=== PATIENT | male | born 1960 | race Caucasian/White ===

== ENCOUNTER 2016-07-11 16:14 | Observation (INO) | payer MEDICARE, MEDICAID, OTHER ==
--- NOTE | 2016-07-11 16:28 | EDM.PDOC ---
ED HPI GENERAL MEDICAL PROBLEM - General Stated Complaint: SEIZURE Time Seen by Provider: 07/11/16 16:14 Source of Information: Reports: Patient, EMS, EMS Notes Reviewed History Limitations: Reports: Intoxication - History of Present Illness INITIAL COMMENTS - FREE TEXT/NARRATIVE: 55 years old w m with chronic ETOH abuse, ETOH related seizure, was brought to the ed by EMS after he was found in his apartment, intoxicated, "not talking" On arrival, his BS was 86, 156/96 pulse 97. pt was following commands, was cooperative, but did not talk. strong ETOH odor. No family was present when the patient arrived here in the ed by EMS. GCS was 14 Onset: Gradual Onset Date: 07/11/16 Onset Time: 14:00 Duration: Hour(s): Location: Reports: Generalized - Related Data Allergies Allergy/AdvReac Type Severity Reaction Status Date / Time No Known Allergies Allergy Verified 07/11/16 16:59 Home Meds: Home Meds NK [No Known Home Meds] 11/23/15 [History] Past Medical History Neurological History: Reports: Seizure, Other (See Below) Other Neuro History: hx of seizure, was on meds for, quit taking meds approximately 6-10 months. Family states he has some residual right sided weakness from a stroke, uses a cane, hospitilized with this many years ago. Other Psychiatric History: sibling state that patient has hx of alcoholism. - Past Surgical History Neurological Surgical History: Reports: None Social & Family History - Family History Family Medical History: Noncontributory - Tobacco Use Smoking Status *Q: Current Every Day Smoker Years of Tobacco use: 40 Packs/Tins Daily: 2 Used Tobacco, but Quit: No Second Hand Smoke Exposure: No - Caffeine Use Caffeine Use: Reports: None - Alcohol Use Days Per Week of Alcohol Use: 7 Number of Drinks Per Day: 10 Total Drinks Per Week: 70 - Recreational Drug Use Recreational Drug Use: Yes Drug Use in Last 12 Months: Yes Recreational Drug Type: Reports: Marijuana/Hashish Recreational Drug Use Frequency: Weekly ED ROS GENERAL - Review of Systems Review Of Systems: Unable To Obtain ED EXAM, GENERAL - Physical Exam Exam: See Below Exam Limited By: Intoxication General Appearance: Alert, Mild Distress, Thin Eye Exam: Bilateral Eye: Normal Inspection Ears: Normal External Exam Ear Exam: Bilateral Ear: Auricle Normal Nose: Normal Inspection Throat/Mouth: Normal Inspection Head: Atraumatic, Normocephalic Neck: Normal Inspection Respiratory/Chest: No Respiratory Distress, Lungs Clear Cardiovascular: Normal Peripheral Pulses, Regular Rate, Rhythm GI/Abdominal: Normal Bowel Sounds (Male) Exam: No Hernia Rectal (Males) Exam: Deferred Back Exam: Normal Inspection, Full Range of Motion Extremities: Normal Inspection, Normal Range of Motion, Non-Tender, No Pedal Edema Neurological: Alert Psychiatric: Other (intoxicated) Skin Exam: Warm, Dry, Intact, Normal Color, No Rash EKG INTERPRETATION EKG Date: 07/11/16 Time: 16:25 Rhythm: NSR [place]: normal P-wave: present QRS: normal ST-T: normal QT: normal Comparison: NA - no prior EKG Course - Vital Signs Text/Narrative:: 55 years old w m with chronic ETOH abuse, ETOH related seizure, was brought to the ed by EMS after he was found in his apartment, intoxicated, "not talking" On arrival, his BS was 86, 156/96 pulse 97. pt was following commands, was cooperative, but did not talk. strong ETOH odor. No family was present when the patient arrived here in the ed by EMS. GCS was 14 PE: Thin 55 y.o.w.m, strong ETOH odor, had ETOH related Sz Labs: ETOH 0.1 elevated Liver enzymes, CK 256 Impression: ETOH related Sx, Dehydration. H/O Chronic ETOH abuse, cachexia Tx: Banana bag, Ativan, Sz precaution Reexam: Pt had one Sz in the ED last ing a few sec. Sz precustions were applied Ativan was given. Plan: admit to [facility] tele. No Family present. Last Recorded V/S: Last Vital Signs Temp 37.2 C 07/12/16 08:10 Pulse 87 07/12/16 04:00 Resp 20 07/12/16 08:10 BP 172/94 H 07/12/16 08:10 Pulse Ox 94 L 07/12/16 08:10 - Orders/Labs/Meds Labs: Laboratory Tests 07/11/16 07/11/16 07/11/16 Range/Units 16:30 16:30 16:30 WBC 4.1 L (4.5-12.0) X10-3/uL RBC 5.31 (4.30-5.75) x10(6)uL Hgb 16.6 H D (11.5-15.5) g/dL Hct 50.2 D (30.0-51.3) % MCV 94.4 (80-96) fL MCH 31.2 (27.7-33.6) pg MCHC 33.1 (32.2-35.4) g/dL RDW 15.5 (11.5-15.5) % Plt Count 97 L (125-369) X10(3)uL MPV 8.0 (7.4-10.4) fL Neut % (Auto) 76.4 (46-82) % Lymph % (Auto) 9.4 L (13-37) % [place] % (Auto) 13.5 H (4-12) % Eos % (Auto) 0 L (1.0-5.0) % Baso % (Auto) 1 (0-2) % Neut # (Auto) 3.1 (1.6-8.3) # Lymph # (Auto) 0.4 L (0.6-5.0) # Miner # (Auto) 0.6 (0.0-1.3) # Eos # (Auto) 0.0 (0.0-0.8) # Baso # (Auto) 0.0 (0.0-0.2) # PT 10.1 (8.7-11.1) INR 1.00 (0.89-1.13) Sodium 135 (135-145) mmol/L Potassium 3.6 (3.5-5.3) mmol/L Chloride 97 L D (100-110) mmol/L Carbon Dioxide 19 L (23-29) mmol/L BUN 4 L (5-20) mg/dL Creatinine 0.7 (0.6-1.3) mg/dL Est Cr Clr Drug Dosing 108.11 mL/min Estimated GFR (MDRD) > 60 (>60) BUN/Creatinine Ratio 5.7 L (9-20) Glucose 109 (80-116) mg/dL POC Glucose (80-116) mg/dL Calcium 9.3 (8.6-10.2) mg/dL Total Bilirubin 0.7 (0.1-1.3) mg/dL Direct Bilirubin 0.2 (0.1-0.2) mg/dL AST 187 H D (5-27) IU/L ALT 64 H D (14-26) IU/L Alkaline Phosphatase 109 (56-112) IU/L Creatine Kinase 253 H (60-160) IU/L Troponin I (0.02-0.06) NG/ML B-Natriuretic Peptide (0-100) pg/mL Total Protein 8.9 H (6.0-8.0) g/dL Albumin 4.5 (3.5-5.2) g/dL Urine Opiates Screen (NEGATIVE) Ur Oxycodone Screen (NEGATIVE) Ur Propoxyphene Screen (NEGATIVE) Ur Barbituates Screen (NEGATIVE) Ur Tricyclics Screen (NEGATIVE) Ur Phencyclidine Scrn (NEGATIVE) Ur Amphetamine Screen (NEGATIVE) Urine MDMA Screen (NEGATIVE) U Benzodiazepines Scrn (NEGATIVE) U Cocaine Metab Screen (NEGATIVE) U Marijuana (THC) Screen (NEGATIVE) Ethyl Alcohol (<0.01) % 07/11/16 07/11/16 07/11/16 Range/Units 16:30 16:30 16:30 WBC (4.5-12.0) X10-3/uL RBC (4.30-5.75) x10(6)uL Hgb (11.5-15.5) g/dL Hct (30.0-51.3) % MCV (80-96) fL MCH (27.7-33.6) pg MCHC (32.2-35.4) g/dL RDW (11.5-15.5) % Plt Count (125-369) X10(3)uL MPV (7.4-10.4) fL Neut % (Auto) (46-82) % Lymph % (Auto) (13-37) % Min[place] % (Auto) (4-12) % Eos % (Auto) (1.0-5.0) % Baso % (Auto) (0-2) % Neut # (Auto) (1.6-8.3) # Lymph # (Auto) (0.6-5.0) # Miner # (Auto) (0.0-1.3) # Eos # (Auto) (0.0-0.8) # Baso # (Auto) (0.0-0.2) # PT (8.7-11.1) INR (0.89-1.13) Sodium (135-145) mmol/L Potassium (3.5-5.3) mmol/L Chloride (100-110) mmol/L Carbon Dioxide (23-29) mmol/L BUN (5-20) mg/dL Creatinine (0.6-1.3) mg/dL Est Cr Clr Drug Dosing mL/min Estimated GFR (MDRD) (>60) BUN/Creatinine Ratio (9-20) Glucose (80-116) mg/dL POC Glucose (80-116) mg/dL Calcium (8.6-10.2) mg/dL Total Bilirubin (0.1-1.3) mg/dL Direct Bilirubin (0.1-0.2) mg/dL AST (5-27) IU/L ALT (14-26) IU/L Alkaline Phosphatase (56-112) IU/L Creatine Kinase (60-160) IU/L Troponin I 0.02 (0.02-0.06) NG/ML B-Natriuretic Peptide < 5 (0-100) pg/mL Total Protein (6.0-8.0) g/dL Albumin (3.5-5.2) g/dL Urine Opiates Screen (NEGATIVE) Ur Oxycodone Screen (NEGATIVE) Ur Propoxyphene Screen (NEGATIVE) Ur Barbituates Screen (NEGATIVE) Ur Tricyclics Screen (NEGATIVE) Ur Phencyclidine Scrn (NEGATIVE) Ur Amphetamine Screen (NEGATIVE) Urine MDMA Screen (NEGATIVE) U Benzodiazepines Scrn (NEGATIVE) U Cocaine Metab Screen (NEGATIVE) U Marijuana (THC) Screen (NEGATIVE) Ethyl Alcohol 0.10 H (<0.01) % 07/11/16 07/11/16 Range/Units 16:33 17:35 WBC (4.5-12.0) X10-3/uL RBC (4.30-5.75) x10(6)uL Hgb (11.5-15.5) g/dL Hct (30.0-51.3) % MCV (80-96) fL MCH (27.7-33.6) pg MCHC (32.2-35.4) g/dL RDW (11.5-15.5) % Plt Count (125-369) X10(3)uL MPV (7.4-10.4) fL Neut % (Auto) (46-82) % Lymph % (Auto) (13-37) % [place] % (Auto) (4-12) % Eos % (Auto) (1.0-5.0) % Baso % (Auto) (0-2) % Neut # (Auto) (1.6-8.3) # Lymph # (Auto) (0.6-5.0) # [place] # (Auto) (0.0-1.3) # Eos # (Auto) (0.0-0.8) # Baso # (Auto) (0.0-0.2) # PT (8.7-11.1) INR (0.89-1.13) Sodium (135-145) mmol/L Potassium (3.5-5.3) mmol/L Chloride (100-110) mmol/L Carbon Dioxide (23-29) mmol/L BUN (5-20) mg/dL Creatinine (0.6-1.3) mg/dL Est Cr Clr Drug Dosing mL/min Estimated GFR (MDRD) (>60) BUN/Creatinine Ratio (9-20) Glucose (80-116) mg/dL POC Glucose 86 (80-116) mg/dL Calcium (8.6-10.2) mg/dL Total Bilirubin (0.1-1.3) mg/dL Direct Bilirubin (0.1-0.2) mg/dL AST (5-27) IU/L ALT (14-26) IU/L Alkaline Phosphatase (56-112) IU/L Creatine Kinase (60-160) IU/L Troponin I (0.02-0.06) NG/ML B-Natriuretic Peptide (0-100) pg/mL Total Protein (6.0-8.0) g/dL Albumin (3.5-5.2) g/dL Urine Opiates Screen Negative (NEGATIVE) Ur Oxycodone Screen Negative (NEGATIVE) Ur Propoxyphene Screen Negative (NEGATIVE) Ur Barbituates Screen Negative (NEGATIVE) Ur Tricyclics Screen Negative (NEGATIVE) Ur Phencyclidine Scrn Negative (NEGATIVE) Ur Amphetamine Screen Negative (NEGATIVE) Urine MDMA Screen Negative (NEGATIVE) U Benzodiazepines Scrn Negative (NEGATIVE) U Cocaine Metab Screen Negative (NEGATIVE) U Marijuana (THC) Screen Positive H (NEGATIVE) Ethyl Alcohol (<0.01) % Meds: Medications Discontinued Medications Generic Name Dose Route Start Last Admin Trade Name Freq PRN Reason Stop Dose Admin Multivitamins/Minerals 10 ml/ 1,017.2 mls @ 500 mls/hr 07/11/16 16:30 17:23 Thiamine HCl 100 mg/ Folic IV 500 mls/hr Acid 1 mg/ Magnesium Sulfate 3 ASDIRECTED TORO Administration gm/ Sodium Chloride Sodium Chloride 1,000 mls @ 75 mls/hr 07/11/16 21:00 07/11/16 21:08 Normal Saline IV 75 mls/hr ASDIRECTED TORO Administration Loperamide HCl 2 mg 07/12/16 08:39 07/12/16 08:57 Imodium PO 07/12/16 08:40 2 mg ONETIME ONE Administration Lorazepam Confirm 07/11/16 17:10 07/11/16 22:29 Ativan Administered 07/11/16 17:11 Not Given Dose 2 mg .ROUTE .STK-MED ONE Lorazepam 1 mg 07/11/16 17:19 07/11/16 17:21 Ativan IVPUSH 07/11/16 17:20 1 mg ONETIME ONE Administration Lorazepam 1 mg 07/11/16 19:08 07/11/16 21:48 Ativan IV 1 mg Q4H PRN Administration Seizures Lorazepam 1 mg 07/11/16 22:30 07/12/16 05:15 Ativan IVPUSH 1 mg Q2H PRN Administration Withdrawal Symptoms Sodium Chloride 10 ml 07/11/16 19:08 07/12/16 05:15 Saline Flush FLUSH 10 ml ASDIRECTED PRN Administration Keep Vein Open Departure - Departure Time of Disposition: 16:00 Disposition: Refer to Observation Condition: fair Clinical Impression: EtOH dependence
[2016-07-11] MEDS ORDERED: MVI, Adult with Vitamin K 10 ML, Thiamine 100 MG, Folic Acid 1 MG, Magnesium Sulfate 3 ... IV SCH ×5 (16:30)
[2016-07-11] MEDS ORDERED: LORazepam 2 MG/ML MDV ONE (17:10)
[2016-07-11] MEDS ORDERED: LORazepam 2 MG/ML MDV IVPUSH ONE (17:19)
[2016-07-11] MEDS ORDERED: LORazepam 2 MG/ML MDV IV PRN (19:08)
[2016-07-11] MEDS ORDERED: Sodium Chloride 0.9% 1,000 ML IV SCH (21:00)
[2016-07-11] MEDS: Sodium Chloride 0.9% 10 ML Syringe FLUSH PRN (21:50)
[2016-07-12] MEDS: LORazepam 2 MG/ML MDV IVPUSH PRN ×2 (02:22→05:15)
[2016-07-12] MEDS: Sodium Chloride 0.9% 10 ML Syringe FLUSH PRN ×3 (02:23→05:15)
[2016-07-12 08:30] VITALS: BP 172/94
[2016-07-12] MEDS ORDERED: Loperamide 2 MG Cap PO ONE (08:39)
--- NOTE | 2016-07-12 10:08 | PCM.HP ---
H&P History of Present Illness - General Date of Service: 07/12/16 Admit Problem/Dx: Admission Diagnosis/Problem Admission Diagnosis/Problem Seizure Source of Information: Patient, Old Records History Limitations: Reports: No Limitations - History of Present Illness Initial Comments - Free Text/Narative: 55-year-old male was brought in because of a seizure. Initially found unresponsive at home assumed to be due to alcohol intoxication. He is a well- known alcoholic and has been here before. In addition he's had seizures in the past and possibly a TIA/ CVA. this morning,he complains of no headache,wishes home. He denies any weakness of one side ,nausea or vomiting chest pain or shortness of breath. The seizure was witnessed am unclear on how long it lasted. - Related Data Allergies/Adverse Reactions: Allergies Allergy/AdvReac Type Severity Reaction Status Date / Time No Known Allergies Allergy Verified 07/11/16 16:59 Home Medications: Home Meds NK [No Known Home Meds] 11/23/15 [History] Past Medical History - Past Health History Medical/Surgical History: Denies Medical/Surgical History HEENT History: Reports: Impaired Vision, Other (See Below) Other HEENT History: impaired from old CVA 12 years ago that affected his left side and currently doesnt have any glasses Cardiovascular History: Reports: CAD Gastrointestinal History: Reports: None Genitourinary History: Reports: None Musculoskeletal History: Reports: None Neurological History: Reports: Seizure, Other (See Below) Other Neuro History: hx of seizure, was on meds for, quit taking meds approximately 6-10 months. Family states he has some residual left sided weakness from a stroke, uses a cane, hospitilized with this many years ago. Psychiatric History: Reports: None Other Psychiatric History: sibling state that patient has hx of alcoholism. Endocrine/Metabolic History: Reports: None Immunologic History: Reports: None Oncologic (Cancer) History: Reports: None - Infectious Disease History Infectious Disease History: Reports: None - Past Surgical History Head Surgeries/Procedures: Reports: None Respiratory Surgical History: Reports: None Male Surgical History: Reports: None Endocrine Surgical History: Reports: None Neurological Surgical History: Reports: None Oncologic Surgical History: Reports: None Social & Family History - Family History Family Medical History: Noncontributory - Tobacco Use Smoking Status *Q: Current Every Day Smoker Years of Tobacco use: 40 Packs/Tins Daily: 3 Used Tobacco, but Quit: No Tobacco Use Comment: Pt states he smokes 3 packs a day and has for 8 years. Second Hand Smoke Exposure: Yes - Caffeine Use Caffeine Use: Reports: None Other Caffeine Use: Daily - Alcohol Use Days Per Week of Alcohol Use: 7 Number of Drinks Per Day: 12 Total Drinks Per Week: 84 Date of Last Drink: 07/10/16 Time of Last Drink: 08:00 - Recreational Drug Use Recreational Drug Use: Yes Drug Use in Last 12 Months: Yes Recreational Drug Type: Reports: Marijuana/Hashish Recreational Drug Use Frequency: Weekly H&P Review of Systems - Review of Systems: Review Of Systems: ROS reveals no pertinent complaints other than HPI. Exam - Exam Exam: See Below - Vital Signs Vital Signs: Last Vital Signs Temp 99 F 07/12/16 08:10 Pulse 87 07/12/16 04:00 Resp 20 07/12/16 08:10 BP 172/94 H 07/12/16 08:10 Pulse Ox 94 L 07/12/16 08:10 Weight: 65.374 kg - Exam General: Alert, Oriented, 4 HEENT: PERRLA, Hearing Intact, Mucosa Moist & [place], Nares Patent, Normal Nasal Septum, Posterior Pharynx Clear, Conjunctiva Clear, EOMI, EACs Clear, TMs Clear Neck: Supple, Trachea Midline, 2 Lungs: Clear to Auscultation, Normal Respiratory Effort Cardiovascular: Regular Rate, Regular Rhythm Abdomen: Normal Bowel Sounds, Soft (Male) Exam: Deferred Rectal (Males) Exam: Deferred Back Exam: Normal Inspection, Full Range of Motion, NT Extremities: 3, Normal Inspection, 10 Skin: Warm, Dry, Intact Neurological: Cranial Nerves Intact, Reflexes Equal Bilateral Neuro Extensive - Mental Status: Alert, Oriented x3, Normal Mood/Affect, Normal Cognition Neuro Extensive - Motor, Sensory, Reflexes: CN II-XII Intact, Normal Gait, Normal Reflexes Psychiatric: Depressed - Patient Data Result Diagrams: 07/11/16 16:30 07/11/16 16:30 *Q Meaningful Use (ADM) - VTE *Q VTE Criteria *Q: - Stroke *Q Stroke Criteria *Q: - AMI *Q AMI Criteria *Q: - Problem List (1) Alcohol related seizure SNOMED Code(s): 08375213 ICD Code: R56.9 - UNSPECIFIED CONVULSIONS Status: Acute Current Visit: Yes (2) Alcohol abuse counseling and surveillance SNOMED Code(s): 851629410, 646171060 ICD Code: Z71.41 - ALCOHOL ABUSE COUNSELING AND SURVEILLANCE OF ALCOHOLIC Status: Acute Current Visit: No (3) Alcohol intoxication SNOMED Code(s): 11581506 ICD Code: F10.129 - ALCOHOL ABUSE WITH INTOXICATION, UNSPECIFIED Status: Acute Current Visit: No (4) History of stroke SNOMED Code(s): 418303922 ICD Code: Z86.73 - PRSNL HX OF TIA (TIA), AND CEREB INFRC W/O RESID DEFICITS Status: Chronic Current Visit: No Problem List Initiated/Reviewed/Updated: Yes Orders Last 24hrs: Active Orders 24 hr Category Date Time Status Telemetry Monitoring [Cardiac Monitoring] [RC] ,16,00 Care 07/11/16 19:08 Active LORazepam [Ativan] Med 07/11/16 22:30 Active 1 mg IVPUSH Q2H PRN Sodium Chloride 0.9% [Normal Saline] 1,000 ml Med 07/11/16 21:00 Active IV ASDIRECTED Seizure Precautions [OM.PC] Routine Oth 07/11/16 19:12 Ordered Medication Orders Multivitamins/Minerals 10 ml/Thiamine HCl 100 mg/ Folic Acid 1 mg/ Magnesium Sulfate 3 gm/ Sodium Chloride 1,017.2 mls @ 500 mls/hr IV ASDIRECTED TORO Last Admin: 07/11/16 17:23 Dose: 500 mls/hr Sodium Chloride (Normal Saline) 1,000 mls @ 75 mls/hr IV ASDIRECTED TORO Last Admin: 07/11/16 21:08 Dose: 75 mls/hr Lorazepam (Ativan) 1 mg IVPUSH Q2H PRN PRN Reason: Withdrawal Symptoms Last Admin: 07/12/16 05:15 Dose: 1 mg Admin: 07/12/16 02:22 Dose: 1 mg Sodium Chloride (Saline Flush) 10 ml FLUSH ASDIRECTED PRN PRN Reason: Keep Vein Open Last Admin: 07/12/16 05:15 Dose: 10 ml Admin: 07/12/16 02:28 Dose: 10 ml Admin: 07/12/16 02:23 Dose: 10 ml Admin: 07/11/16 21:50 Dose: 10 ml Assessment/Plan Comment:: Patient is not interested in any inpatient treatment for alcohol. He insists that he would like to go home. His vital signs are stable and he is alert.I will discharge him home to the care of his family.
== END 2016-07-12 10:00 | disposition home or self-care (01) ==
LOC: FB.ED 16:14 → FB.MS 19:08
PROVIDERS: ADMIT Emergency Medicine; ATTEND Family Medicine
DX: R56.9 Unspecified convulsions (principal); F10.129 Alcohol abuse with intoxication, unspecified; I25.10 Atherosclerotic heart disease of native coronary artery without angina pectoris; Z71.41 Alcohol abuse counseling and surveillance of alcoholic; Z86.73 Personal history of transient ischemic attack (TIA), and cerebral infarction without residual deficits; Z79.899 Other long term (current) drug therapy; F17.210 Nicotine dependence, cigarettes, uncomplicated
CPT/HCPCS: 36415; 80048; 80076; 80305; 82550; 82962; 83880; 84484; 85025; 85610; 93005; 96365; 96366; 96375; 96376; 99219; 99285; A9270; G0378; G0480; J2060; J3411; J3475; J7040; J7050; J3490

== ENCOUNTER 2018-09-18 11:06 | Emergency (ER) | payer MEDICARE, MEDICAID ==
[2018-09-18] MEDS ORDERED: Sodium Chloride 0.9% 1,000 ML IV ONE ×2 (11:12→12:46)
[2018-09-18] MEDS ORDERED: Thiamine 200 MG/2 ML MDV IM ONE (11:12)
--- NOTE | 2018-09-18 11:15 | EDM.PDOC ---
ED HPI GENERAL MEDICAL PROBLEM - General Stated Complaint: SEIZURE, WITHDRAWAL POSSIBLE Time Seen by Provider: 09/18/18 11:06 Source of Information: Reports: Patient, EMS History Limitations: Reports: Intoxication - History of Present Illness INITIAL COMMENTS - FREE TEXT/NARRATIVE: 57 y.o.w.m, homeless, chronic ETOH abuse, came by EMS after his brother saw him Seizing. Last ETOH intake was last night. Pt is lethargic an has a fine tremor when he is stretching his hand out. He unable to ambulate, no tongue bite, no spontaneous urination. No trauma, no other acute med issues. BP 180/106 Pulse ox 97% on RA RR 20 Pulse 92 Temp 37.2 Onset Date: 09/18/18 Onset Time: 09:00 Duration: Hour(s):, Improving Location: Reports: Generalized Quality: Reports: Other (chronic ETOH, Homeless) Improves with: Reports: None Worsens with: Reports: None Context: Reports: Other (ETOH) - Related Data Allergies Allergy/AdvReac Type Severity Reaction Status Date / Time No Known Allergies Allergy Verified 09/18/18 11:16 Home Meds: Home Meds Metoprolol Succinate [Toprol XL 50mg] 50 mg PO DAILY #30 tab.er 01/02/18 [Rx] Past Medical History - Past Health History Medical/Surgical History: Denies Medical/Surgical History HEENT History: Reports: Impaired Vision, Other (See Below) Other HEENT History: Has had prescription glasses in the past. Also has had vision affected to left eye from an old stroke---from past hx Cardiovascular History: Reports: CAD Gastrointestinal History: Reports: None Genitourinary History: Reports: None Musculoskeletal History: Reports: None Neurological History: Reports: CVA, Other (See Below), Seizure Other Neuro History: probable alcoholic seizure 07/12/16. Old stroke >10 years ago has left him with some left sided weakness (uses a cane) and vision some how affected to left eye. Psychiatric History: Reports: Addiction, None, Other (See Below) Other Psychiatric History: hx of alcoholism and has admitted to marijuana use in past history. Endocrine/Metabolic History: Reports: None Immunologic History: Reports: None Oncologic (Cancer) History: Reports: None - Infectious Disease History Infectious Disease History: Reports: None - Past Surgical History Neurological Surgical History: Reports: None Social & Family History - Family History Family Medical History: Noncontributory - Caffeine Use Caffeine Use: Reports: None Other Caffeine Use: Daily Caffeine Use Comment: unobtainable ED ROS GENERAL - Review of Systems Review Of Systems: Unable To Obtain - Physical Exam Exam: See Below Exam Limited By: Intoxication General Appearance: WD/WN, Lethargic, Mild Distress Eye Exam: Bilateral Eye: Normal Fundi Ears: Normal External Exam Nose: Normal Inspection Throat/Mouth: Normal Lips, Normal Voice, No Airway Compromise Head Exam: Atraumatic, Normocephalic Neck: Normal Inspection, Supple, Non-Tender, Full Range of Motion Respiratory/Chest: No Respiratory Distress, Lungs Clear, Normal Breath Sounds Cardiovascular: Normal Peripheral Pulses, Regular Rate, Rhythm, No Edema GI/Abdominal: Normal Bowel Sounds (Male) Exam: Deferred Rectal (Males) Exam: Deferred Neuro Exam (Abbreviated): Slow to Respond, Memory Loss Remote Events, Abnormal Gait, Other (lethargic) Back Exam: Normal Inspection Extremities: Normal Inspection Psychiatric: Depressed Mood Skin Exam: Warm, Dry, Intact, Normal Color EKG INTERPRETATION EKG Date: 09/18/18 Time: 11:45 Rhythm: NSR Rate (Beats/Min): 86 [place]: Normal P-Wave: Present QRS: Normal ST-T: Normal QT: Normal Comparison: NA - No Prior EKG Course - Vital Signs Text/Narrative:: 57 y.o.w.m, homeless, chronic ETOH abuse, came by EMS after his brother saw him Seizing. Last ETOH intake was last night. Pt is lethargic an has a fine tremor when he is stretching his hand out. He unable to ambulate, no tongue bite, no spontaneous urination. No trauma, no other acute med issues. BP 180/106 Pulse ox 97% on RA RR 20 Pulse 92 Temp 37.2 PE: weak, unkempt, w m with a fine tremor and exp wheezes, no fami;ly present Labs: CBC BMP nl ETOH 0.03 UDS neg Impression: HTN, Possible ETOH related withdrawal Sz, homeless, too weak to ambulate, Asthma Tx: NS, Thiamin, Labetalol. Duoneb, Alb neb, Ativan, Phenobarbital Reexam: Was stable in the ED 2.52 pm Consultation: Dr. Whitten, Hospitalist: Admit to ICU 3.13 pm Consultation: Dr. Whitten, Hospitalist: Transfer pt because ICU has no staff 3.20 pm: Consultation Dr. Das [facility]: Phenobarbital 260 mg iv times 1, then transfer to [facility] Plan: Transfer to [facility] by EMS Last Recorded V/S: Last Vital Signs Temp 37.4 C 09/18/18 15:24 Pulse 93 09/18/18 15:24 Resp 17 09/18/18 15:24 BP 137/68 09/18/18 15:24 Pulse Ox 97 09/18/18 15:24 - Orders/Labs/Meds Orders: Active Orders 24 hr Category Date Time Status RT Aerosol Therapy [RC] ASDIRECTED Care 09/18/18 11:18 Active Sodium Chloride 0.9% [Saline Flush] Med 09/18/18 12:37 Active 10 ml FLUSH ASDIRECTED PRN Seizure Precautions [OM.PC] Routine Oth 09/18/18 11:21 Ordered EKG 12 Lead [EK] Routine Ther 09/18/18 11:19 Ordered Medication Orders Sodium Chloride (Saline Flush) 10 ml FLUSH ASDIRECTED PRN PRN Reason: TKO Last Admin: 09/18/18 12:38 Dose: 10 ml Labs: Laboratory Tests 09/18/18 09/18/18 09/18/18 Range/Units 11:55 11:55 11:55 WBC 7.1 (4.5-12.0) X10-3/uL RBC 4.56 (4.30-5.75) x10(6)uL Hgb 14.9 (13.5-17.8) g/dL Hct 43.3 (30.0-51.3) % MCV 94.9 (80-96) fL MCH 32.5 (27.7-33.6) pg MCHC 34.3 (32.2-35.4) g/dL RDW 13.6 (11.5-15.5) % Plt Count 121 L (125-369) X10(3)uL MPV 7.6 (7.4-10.4) fL Neut % (Auto) 72.3 (46-82) % Lymph % (Auto) 16.7 (13-37) % [place] % (Auto) 8.3 (4-12) % Eos % (Auto) 0 L (1.0-5.0) % Baso % (Auto) 3 H (0-2) % Neut # (Auto) 5.1 (1.6-8.3) # Lymph # (Auto) 1.2 (0.6-5.0) # [place] # (Auto) 0.6 (0.0-1.3) # Eos # (Auto) 0.0 (0.0-0.8) # Baso # (Auto) 0.2 (0.0-0.2) # Sodium 139 (135-145) mmol/L Potassium 4.2 (3.5-5.3) mmol/L Chloride 102 (100-110) mmol/L Carbon Dioxide 26 (21-32) mmol/L BUN 10 (7-18) mg/dL Creatinine 0.8 (0.70-1.30) mg/dL Est Cr Clr Drug Dosing TNP Estimated GFR (MDRD) > 60 (>60) BUN/Creatinine Ratio 12.5 (9-20) Glucose 102 (80-116) mg/dL Calcium 9.0 (8.6-10.2) mg/dL Urine Opiates Screen (NEGATIVE) Ur Oxycodone Screen (NEGATIVE) Ur Propoxyphene Screen (NEGATIVE) Ur Barbituates Screen (NEGATIVE) Ur Tricyclics Screen (NEGATIVE) Ur Phencyclidine Scrn (NEGATIVE) Ur Amphetamine Screen (NEGATIVE) Urine MDMA Screen (NEGATIVE) U Benzodiazepines Scrn (NEGATIVE) U Cocaine Metab Screen (NEGATIVE) U Marijuana (THC) Screen (NEGATIVE) Ethyl Alcohol < 0.03 (<0.03) % 09/18/ Range/Units 13:50 WBC (4.5-12.0) X10-3/uL RBC (4.30-5.75) x10(6)uL Hgb (13.5-17.8) g/dL Hct (30.0-51.3) % MCV (80-96) fL MCH (27.7-33.6) pg MCHC (32.2-35.4) g/dL RDW (11.5-15.5) % Plt Count (125-369) X10(3)uL MPV (7.4-10.4) fL Neut % (Auto) (46-82) % Lymph % (Auto) (13-37) % [place] % (Auto) (4-12) % Eos % (Auto) (1.0-5.0) % Baso % (Auto) (0-2) % Neut # (Auto) (1.6-8.3) # Lymph # (Auto) (0.6-5.0) # [place] # (Auto) (0.0-1.3) # Eos # (Auto) (0.0-0.8) # Baso # (Auto) (0.0-0.2) # Sodium (135-145) mmol/L Potassium (3.5-5.3) mmol/L Chloride (100-110) mmol/L Carbon Dioxide (21-32) mmol/L BUN (7-18) mg/dL Creatinine (0.70-1.30) mg/dL Est Cr Clr Drug Dosing Estimated GFR (MDRD) (>60) BUN/Creatinine Ratio (9-20) Glucose (80-116) mg/dL Calcium (8.6-10.2) mg/dL Urine Opiates Screen Negative (NEGATIVE) Ur Oxycodone Screen Negative (NEGATIVE) Ur Propoxyphene Screen Negative (NEGATIVE) Ur Barbituates Screen Negative (NEGATIVE) Ur Tricyclics Screen Negative (NEGATIVE) Ur Phencyclidine Scrn Negative (NEGATIVE) Ur Amphetamine Screen Negative (NEGATIVE) Urine MDMA Screen Negative (NEGATIVE) U Benzodiazepines Scrn Negative (NEGATIVE) U Cocaine Metab Screen Negative (NEGATIVE) U Marijuana (THC) Screen Negative (NEGATIVE) Ethyl Alcohol (<0.03) % Meds: Medications Generic Name Dose Route Start Last Admin Trade Name Freq PRN Reason Stop Dose Admin Sodium Chloride 10 ml 09/18/18 12:37 09/18/18 12:38 Saline Flush FLUSH 10 ml ASDIRECTED PRN Administration TKO Discontinued Medications Generic Name Dose Route Start Last Admin Trade Name Freq PRN Reason Stop Dose Admin Albuterol 2.5 mg 09/18/18 14:04 09/18/18 14:15 Proventil Neb Soln NEB 09/18/18 14:05 2.5 mg ONETIME ONE Administration Albuterol/Ipratropium 3 ml 09/18/18 11:18 09/18/18 11:35 Duoneb 3.0-0.5 Mg/3 Ml NEB 09/18/18 11:19 3 ml ONETIME ONE Administration Sodium Chloride 1,000 mls @ 999 mls/hr 09/18/18 11:12 09/18/18 11:28 Normal Saline IV 09/18/18 12:12 999 mls/hr .BOLUS ONE Administration Sodium Chloride 1,000 mls @ 999 mls/hr 09/18/18 12:46 09/18/18 12:51 Normal Saline IV 09/18/18 13:46 999 mls/hr .BOLUS ONE Administration Labetalol HCl 10 mg 09/18/18 13:13 09/18/18 13:28 Normodyne IVPUSH 09/18/18 13:14 10 mg ONETIME ONE Administration Protocol Lorazepam 1 mg 09/18/18 11:17 09/18/18 11:29 Ativan IVPUSH 09/18/18 11:18 1 mg ONETIME STA Administration Lorazepam 1 mg 09/18/18 14:07 09/18/18 14:15 Ativan IVPUSH 09/18/18 14:08 1 mg ONETIME ONE Administration Phenobarbital 260 mg 09/18/18 15:26 09/18/18 15:51 Phenobarbital Sodium IVPUSH 09/18/18 15:27 260 mg ONETIME STA Administration Thiamine HCl 100 mg 09/18/18 11:12 09/18/18 11:30 Vitamin B-1 IM 09/18/18 11:13 100 mg ONETIME ONE Administration Departure - Departure Time of Disposition: 16:03 Disposition: DC/Tfer to Acute Hospital 02 Condition: Fair Clinical Impression: Unable to ambulate, Homeless - Discharge Information Referrals: PCP,None [Primary Care Provider] - - My Orders Last 24 Hours: My Active Orders 09/18/18 11:18 RT Aerosol Therapy [RC] ASDIRECTED 09/18/18 11:19 EKG 12 Lead [EK] Routine 09/18/18 11:21 Seizure Precautions [OM.PC] Routine 09/18/18 12:37 Sodium Chloride 0.9% [Saline Flush] 10 ml FLUSH ASDIRECTED PRN - Assessment/Plan Last 24 Hours: My Active Orders 09/18/18 11:18 RT Aerosol Therapy [RC] ASDIRECTED 09/18/18 11:19 EKG 12 Lead [EK] Routine 09/18/18 11:21 Seizure Precautions [OM.PC] Routine 09/18/18 12:37 Sodium Chloride 0.9% [Saline Flush] 10 ml FLUSH ASDIRECTED PRN
[2018-09-18] MEDS ORDERED: LORazepam 2 MG/ML SDV IVPUSH STA (11:17)
[2018-09-18] MEDS ORDERED: Albuterol/Ipratropium 3.0-0.5 MG/3 ML Neb Soln NEB ONE (11:18)
[2018-09-18] MEDS ORDERED: Sodium Chloride 0.9% 10 ML Syringe FLUSH PRN (12:37)
[2018-09-18] MEDS ORDERED: Labetalol 100 MG/20 ML MDV IVPUSH ONE (13:13)
[2018-09-18] MEDS ORDERED: Albuterol 0.083% 2.5 MG/3 ML Neb Soln NEB ONE (14:04)
[2018-09-18] MEDS ORDERED: LORazepam 2 MG/ML SDV IVPUSH ONE (14:07)
[2018-09-18] MEDS ORDERED: PHENobarbital Sodium 65 MG/ML SDV IVPUSH STA (15:26)
[2018-09-18 16:33] VITALS: BP 148/72; PULSE 84
== END 2018-09-18 16:55 ==
LOC: FB.ED 11:06
DX: I10 Essential (primary) hypertension (principal); R26.2 Difficulty in walking, not elsewhere classified; J45.909 Unspecified asthma, uncomplicated; I25.10 Atherosclerotic heart disease of native coronary artery without angina pectoris; Z59.0 Homelessness; F10.229 Alcohol dependence with intoxication, unspecified
CPT/HCPCS: 36415; 80048; 80305; 85025; 93005; 93010; 94640; 96361; 96372; 96374; 96375; 96376; 99285; G0480; J2060; J2560; J3411; J3490; J7030; J7620-GY

== ENCOUNTER 2020-09-17 17:15 | Emergency (ER) | payer MEDICARE, MEDICAID ==
[2020-09-17 17:56] VITALS: PULSE 82
--- NOTE | 2020-09-17 19:31 | EDM.PDOC ---
ED HPI GENERAL MEDICAL PROBLEM - General Chief Complaint: General Stated Complaint: ALCOHOL Time Seen by Provider: 09/17/20 17:30 Source of Information: Reports: Patient History Limitations: Reports: Intoxication - History of Present Illness INITIAL COMMENTS - FREE TEXT/NARRATIVE: c/o intox brought in by EMS, found in middle of street intoxicated - Related Data Allergies Allergy/AdvReac Type Severity Reaction Status Date / Time No Known Allergies Allergy Verified 09/17/20 17:52 Home Meds: Home Meds Metoprolol Succinate [Toprol XL 50mg] 50 mg PO DAILY #30 tab.er 01/02/18 [Rx] Magnesium Oxide 400 mg PO BID #60 tab 09/17/20 [Rx] Past Medical History - Past Health History Medical/Surgical History: Denies Medical/Surgical History HEENT History: Reports: Impaired Vision, Other (See Below) Other HEENT History: Has had prescription glasses in the past. Also has had vision affected to left eye from an old stroke---from past hx Cardiovascular History: Reports: CAD Gastrointestinal History: Reports: None Genitourinary History: Reports: None Musculoskeletal History: Reports: None Neurological History: Reports: CVA, Other (See Below), Seizure Other Neuro History: probable alcoholic seizure 07/12/16. Old stroke >10 years ago has left him with some left sided weakness (uses a cane) and vision some how affected to left eye. Psychiatric History: Reports: Addiction, None, Other (See Below) Other Psychiatric History: hx of alcoholism and has admitted to marijuana use in past history. Endocrine/Metabolic History: Reports: None Immunologic History: Reports: None Oncologic (Cancer) History: Reports: None - Infectious Disease History Infectious Disease History: Reports: None - Past Surgical History Neurological Surgical History: Reports: None Social & Family History - Family History Family Medical History: No Pertinent Family History - Caffeine Use Caffeine Use: Reports: None Other Caffeine Use: Daily Caffeine Use Comment: unobtainable ED ROS GENERAL - Review of Systems Review Of Systems: See Below Constitutional: Reports: No Symptoms HEENT: Reports: No Symptoms Respiratory: Reports: No Symptoms Cardiovascular: Reports: No Symptoms Endocrine: Reports: No Symptoms GI/Abdominal: Reports: No Symptoms : Reports: No Symptoms Musculoskeletal: Reports: No Symptoms Skin: Reports: No Symptoms Neurological: Reports: No Symptoms Psychiatric: Reports: No Symptoms Hematologic/Lymphatic: Reports: No Symptoms Immunologic: Reports: No Symptoms Free Text/Narrative/Comment: pt without c/o when asked ED EXAM, GENERAL - Physical Exam Exam: See Below Exam Limited By: Intoxication General Appearance: Alert, No Apparent Distress, Other (makes eye contact, answers questions, intoxicated, not interested in tx) Ears: Hearing Grossly Normal Nose: Normal Inspection Throat/Mouth: Normal Inspection, Normal Voice, No Airway Compromise Head: Atraumatic, Normocephalic Neck: Normal Inspection, Supple, Non-Tender. No: Lymphadenopathy (R), Lymphadenopathy (L) Respiratory/Chest: No Respiratory Distress, Lungs Clear Cardiovascular: Regular Rate, Rhythm, No Edema, Other (2/6 TEQUILA at LSB) GI/Abdominal: Soft, Non-Tender, No Organomegaly, No Distention Back Exam: Normal Inspection Extremities: Normal Inspection, Normal Range of Motion, Non-Tender, No Pedal Edema Neurological: Alert, CN II-XII Intact, No Motor/Sensory Deficits Psychiatric: Normal Affect, Normal Mood Skin Exam: Warm, Dry, Intact, Normal Color, No Rash Lymphatic: No Adenopathy Course - Vital Signs Last Recorded V/S: Last Vital Signs Temp 36.9 C 09/17/20 17:15 Pulse 82 09/17/20 19:08 Resp 16 09/17/20 19:08 BP 101/58 L 09/17/20 19:08 Pulse Ox 99 09/17/20 19:08 - Orders/Labs/Meds Labs: Laboratory Tests 09/17/20 09/17/20 09/17/20 Range/Units 17:55 17:55 17:55 WBC 5.4 (3.2-10.1) x10-3/uL RBC 3.78 L (3.90-5.90) x10(6)uL Hgb 13.0 (12.9-17.7) g/dL Hct 37.8 L (38.3-50.1) % MCV 99.9 H (80.8-98.7) fL MCH 34.4 H (27.0-33.3) pg MCHC 34.4 (28.7-35.3) g/dL RDW 14.3 (12.4-15.0) % Plt Count 256 (117-477) x10(3)uL MPV 6.5 L (6.7-11.0) fL Neut % (Auto) 68.8 (40.3-71.8) % Lymph % (Auto) 15.3 L (15.8-45.3) % [place] % (Auto) 13.9 (5.5-15.2) % Eos % (Auto) 0.9 (0.1-6.8) % Baso % (Auto) 1.1 (0.3-3.8) % Neut # (Auto) 3.7 (1.7-6.9) x10-3/uL Lymph # (Auto) 0.8 (0.5-4.5) x10-3/uL [place] # (Auto) 0.8 (0.0-1.2) x10-3/uL Eos # (Auto) 0.1 (0.0-0.6) x10-3/uL Baso # (Auto) 0.1 (0.0-0.3) x10-3/uL Sodium 140 (135-145) mmol/L Potassium 3.5 (3.5-5.3) mmol/L Chloride 100 (100-110) mmol/L Carbon Dioxide 26 (21-32) mmol/L BUN 3 L (7-18) mg/dL Creatinine 0.7 (0.70-1.30) mg/dL Est Cr Clr Drug Dosing TNP Estimated GFR (MDRD) > 60 (>60) BUN/Creatinine Ratio 4.3 L (9-20) Glucose 80 (80-116) mg/dL Calcium 8.3 L (8.6-10.2) mg/dL Magnesium 1.6 L (1.8-2.5) mg/dL Total Bilirubin 0.4 (0.1-1.3) mg/dL AST 40 H (5-25) IU/L ALT 27 D (12-36) U/L Alkaline Phosphatase 54 L (56-112) IU/L Total Protein 7.1 (6.0-8.0) g/dL Albumin 3.2 (3.2-4.6) g/dL Globulin 3.9 g/dL Albumin/Globulin Ratio 0.8 Ethyl Alcohol 0.31 H* (<0.03) % - Re-Assessments/Exams Free Text/Narrative Re-Assessment/Exam: 09/20/20 21:09 give Mg Rx for low Mg son came to pick him up and arrange a ride home Departure - Departure Time of Disposition: 19:16 Disposition: Home, Self-Care 01 Condition: Good Clinical Impression: Acute alcohol intoxication, Hypomagnesemia - Discharge Information *PRESCRIPTION DRUG MONITORING PROGRAM REVIEWED*: Not Applicable *COPY OF PRESCRIPTION DRUG MONITORING REPORT IN PATIENT SHYAM: Not Applicable Prescriptions: Magnesium Oxide 400 mg PO BID #60 tab Instructions: Hypomagnesemia, Alcohol Intoxication Referrals: PCP,None [Primary Care Provider] - Forms: ED Department Discharge Additional Instructions: To replace magnesium, take magnesium oxide 400 mg 1 tab 2 times a day. See your doctor in 2-3 days for further recommendations. Discuss both inpatient and outpatient alcohol treatment options. Stop drinking alcohol which is damaging your health. Sepsis Event Note (ED) - Evaluation Sepsis Screening Result: No Definite Risk
[2020-09-17 20:30] VITALS: BP 101/58
== END 2020-09-17 19:35 | disposition home or self-care (01) ==
LOC: FB.ED 17:15
DX: F10.129 Alcohol abuse with intoxication, unspecified (principal); E83.42 Hypomagnesemia; I25.10 Atherosclerotic heart disease of native coronary artery without angina pectoris; Y90.5 Blood alcohol level of 100-119 mg/100 ml
CPT/HCPCS: 36415; 80053; 80307; 83735; 85025; 99284

== ENCOUNTER 2020-09-23 13:04 | Emergency (ER) | payer MEDICARE, MEDICAID ==
[2020-09-23] MEDS ORDERED: Sodium Chloride 0.9% 10 ML Syringe FLUSH PRN (13:36)
[2020-09-23] MEDS ORDERED: Cephalexin 500 MG Cap PO STA (13:38)
[2020-09-23] MEDS ORDERED: Sodium Chloride 0.9% 1,000 ML IV SCH (13:45)
--- NOTE | 2020-09-23 15:04 | CR ---
INDICATION: Cough, weakness. CHEST ONE VIEW: An AP upright view of the chest x2 portable 09/23/20 and compared with 12/30/17 and 03/11/14. Diaphragm leaves have flattened compatible with progressive COPD. A central line from the right is noted with its tip in the area of the superior vena cava just above the right atrium. A definite active infiltrate or effusion was not identified with minimal blunting of costophrenic angles most likely on the basis of hyperaeration. The heart and mediastinum are unremarkable except to note some mild tortuosity of the aorta and perhaps some very minimal calcifications in the arch of the aorta. IMPRESSION: 1. No definite acute process - possible exacerbation of COPD versus progression of COPD. 2. Question mild ASD aorta. MTDD
--- NOTE | 2020-09-23 16:19 | EDM.PDOC ---
ED HPI GENERAL MEDICAL PROBLEM - General Chief Complaint: Upper Extremity Injury/Pain Stated Complaint: LACERATION Time Seen by Provider: 09/23/20 13:15 Source of Information: Reports: Patient History Limitations: Reports: No Limitations - History of Present Illness INITIAL COMMENTS - FREE TEXT/NARRATIVE: Patient presented to the ED because of Rt hand injury . He apparently fell and skin on the base of his rt thumb was ripped off when he fell. He rate the pain 5/10. He also mentioned that he is homeless and that he has been evicted from his brother's house. Right Hand Pain Score (Numeric/FACES): 5 - Related Data Allergies Allergy/AdvReac Type Severity Reaction Status Date / Time No Known Allergies Allergy Verified 09/23/20 13:32 Home Meds: Home Meds Metoprolol Succinate [Toprol XL 50mg] 50 mg PO DAILY #30 tab.er 01/02/18 [Rx] Magnesium Oxide 400 mg PO BID #60 tab 09/17/20 [Rx] Past Medical History - Past Health History Medical/Surgical History: Denies Medical/Surgical History HEENT History: Reports: Impaired Vision, Other (See Below) Other HEENT History: Has had prescription glasses in the past. Also has had vision affected to left eye from an old stroke---from past hx Cardiovascular History: Reports: CAD, Hypertension Respiratory History: Reports: None Gastrointestinal History: Reports: None Genitourinary History: Reports: None Musculoskeletal History: Reports: Other (See Below) Other Musculoskeletal History: weakness post stroke Neurological History: Reports: CVA, Other (See Below), Seizure Other Neuro History: probable alcoholic seizure 07/12/16. Old stroke >10 years ago has left him with some left sided weakness (uses a cane) and vision some how affected to left eye. Psychiatric History: Reports: Addiction, None, Other (See Below) Other Psychiatric History: hx of alcoholism and has admitted to marijuana use in past history. Endocrine/Metabolic History: Reports: None Immunologic History: Reports: None Oncologic (Cancer) History: Reports: None - Infectious Disease History Infectious Disease History: Reports: None - Past Surgical History Head Surgeries/Procedures: Reports: None Respiratory Surgical History: Reports: None Male Surgical History: Reports: None Endocrine Surgical History: Reports: None Neurological Surgical History: Reports: None Musculoskeletal Surgical History: Reports: None Oncologic Surgical History: Reports: None Social & Family History - Family History Family Medical History: No Pertinent Family History - Tobacco Use Tobacco Use Status *Q: Current Every Day Tobacco User Years of Tobacco use: 40 Packs/Tins Daily: 2 Second Hand Smoke Exposure: Yes - Caffeine Use Caffeine Use: Reports: None Other Caffeine Use: Daily Caffeine Use Comment: unobtainable - Alcohol Use Days Per Week of Alcohol Use: 7 Number of Drinks Per Day: 10 Total Drinks Per Week: 70 - Recreational Drug Use Recreational Drug Use: No Review of Systems - Review of Systems Review Of Systems: See Below Constitutional: Reports: No Symptoms Eyes: Reports: No Symptoms Ears: Reports: No Symptoms Nose: Reports: No Symptoms Mouth/Throat: Reports: No Symptoms Respiratory: Reports: No Symptoms Cardiovascular: Reports: No Symptoms GI/Abdominal: Reports: No Symptoms Genitourinary: Reports: No Symptoms Musculoskeletal: Reports: No Symptoms Skin: Reports: Erythema, Wound Neurological: Reports: No Symptoms Psychiatric: Reports: No Symptoms ED EXAM, GENERAL - Physical Exam Exam: See Below Exam Limited By: No Limitations General Appearance: Alert, No Apparent Distress Eye Exam: Bilateral Eye: Vision Changes Ears: Normal External Exam, Normal Canal Nose: Normal Inspection, Normal Mucosa, No Blood Throat/Mouth: Normal Inspection, Normal Lips, Normal Teeth, Normal Gums Head: Atraumatic, Normocephalic Neck: Normal Inspection, Supple, Non-Tender, Full Range of Motion Respiratory/Chest: No Respiratory Distress, Lungs Clear, Normal Breath Sounds, Chest Non-Tender Cardiovascular: Normal Peripheral Pulses, Regular Rate, Rhythm, No Edema, No Gallop, No JVD, No Murmur, No Rub GI/Abdominal: Normal Bowel Sounds, Soft, Non-Tender, No Organomegaly, No Distention, No Abnormal Bruit, No Mass Back Exam: Normal Inspection, Full Range of Motion Extremities: Normal Inspection, Normal Range of Motion, Non-Tender #1 Interpretation EKG Date: 09/23/20 Time: 13:40 Rhythm: NSR Rate (Beats/Min): 74 [place]: Normal P-Wave: Present QRS: Normal ST-T: Normal QT: Normal [place]/PQ Interval: 153 Comparison: NA - No Prior EKG EKG Interpretation Comments: NSR Anteroseptal infarct-old Course - Vital Signs Text/Narrative:: Lab/EKG/CXR result was reviewed and discussed with patient Keflex 500 mg PO x1 NSA 1L bolus IV x 1 Last Recorded V/S: Last Vital Signs Temp 37.3 C 09/23/20 13:05 Pulse 79 09/23/20 13:05 Resp 18 09/23/20 13:05 BP 209/118 H 09/23/20 13:05 Pulse Ox 100 09/23/20 13:05 - Orders/Labs/Meds Orders: Active Orders 24 hr Category Date Time Status EKG Documentation Completion [RC] ASDIRECTED Care 09/23/20 13:36 Active Sodium Chloride 0.9% [Normal Saline] 1,000 ml Med 09/23/20 13:45 Active IV ASDIRECTED Sodium Chloride 0.9% [Saline Flush] Med 09/23/20 13:36 Active 10 ml FLUSH ASDIRECTED PRN Saline Lock Insert [OM.PC] Routine Oth 09/23/20 13:36 Ordered EKG 12 Lead [EK] Routine Ther 09/23/20 13:36 Ordered Medication Orders Sodium Chloride (Normal Saline) 1,000 mls @ 500 mls/hr IV ASDIRECTED TORO Last Admin: 09/23/20 14:00 Dose: 500 mls/hr Documented by: QUINTON Sodium Chloride (Sodium Chloride 0.9% 10 Ml Syringe) 10 ml FLUSH ASDIRECTED PRN PRN Reason: Keep Vein Open Last Admin: 09/23/20 13:55 Dose: 10 ml Documented by: QUINTON Labs: Laboratory Tests 09/23/20 09/23/20 09/23/20 Range/Units 13:55 13:55 13:55 WBC 8.1 (3.2-10.1) x10-3/uL RBC 3.63 L (3.90-5.90) x10(6)uL Hgb 12.7 L (12.9-17.7) g/dL Hct 36.4 L (38.3-50.1) % MCV 100.3 H (80.8-98.7) fL MCH 35.1 H (27.0-33.3) pg MCHC 35.0 (28.7-35.3) g/dL RDW 14.4 (12.4-15.0) % Plt Count 271 (117-477) x10(3)uL MPV 6.5 L (6.7-11.0) fL Neut % (Auto) 71.7 (40.3-71.8) % Lymph % (Auto) 8.8 L (15.8-45.3) % Glenn % (Auto) 17.2 H (5.5-15.2) % Eos % (Auto) 1.2 (0.1-6.8) % Baso % (Auto) 1.1 (0.3-3.8) % Neut # (Auto) 5.8 (1.7-6.9) x10-3/uL Lymph # (Auto) 0.7 (0.5-4.5) x10-3/uL Glenn # (Auto) 1.4 H (0.0-1.2) x10-3/uL Eos # (Auto) 0.1 (0.0-0.6) x10-3/uL Baso # (Auto) 0.1 (0.0-0.3) x10-3/uL Sodium 137 (135-145) mmol/L Potassium 3.4 L (3.5-5.3) mmol/L Chloride 98 L (100-110) mmol/L Carbon Dioxide 29 (21-32) mmol/L BUN 3 L (7-18) mg/dL Creatinine 0.7 (0.70-1.30) mg/dL Est Cr Clr Drug Dosing 100.80 mL/min Estimated GFR (MDRD) > 60 (>60) BUN/Creatinine Ratio 4.3 L (9-20) Glucose 82 (80-116) mg/dL Calcium 8.3 L (8.6-10.2) mg/dL Total Bilirubin 0.4 (0.1-1.3) mg/dL AST 43 H (5-25) IU/L ALT 29 (12-36) U/L Alkaline Phosphatase 71 (56-112) IU/L Troponin I < 4.0 L (4.0-60.3) pg/mL Total Protein 7.3 (6.0-8.0) g/dL Albumin 3.1 L (3.2-4.6) g/dL Globulin 4.2 g/dL Albumin/Globulin Ratio 0.7 Urine Color (YELLOW) Urine Appearance (CLEAR) Urine pH (5.0-6.5) Ur Specific [place] (1.010-1.025) Urine Protein (NEGATIVE) mg/dL Urine Glucose (UA) (NORMAL) mg/dL Urine Ketones (NEGATIVE) mg/dL Urine Occult Blood (NEGATIVE) Urine Nitrite (NEGATIVE) Urine Bilirubin (NEGATIVE) Urine Urobilinogen (NEGATIVE) mg/dL Ur Leukocyte Esterase (NEGATIVE) Urine RBC (0-5) Urine WBC (0-5) Ur Squamous Epith Cells (NS,R,O) Urine Bacteria (NS) Ethyl Alcohol 0.11 H (<0.03) % 09/23/20 Range/Units 14:39 WBC (3.2-10.1) x10-3/uL RBC (3.90-5.90) x10(6)uL Hgb (12.9-17.7) g/dL Hct (38.3-50.1) % MCV (80.8-98.7) fL MCH (27.0-33.3) pg MCHC (28.7-35.3) g/dL RDW (12.4-15.0) % Plt Count (117-477) x10(3)uL MPV (6.7-11.0) fL Neut % (Auto) (40.3-71.8) % Lymph % (Auto) (15.8-45.3) % Glenn % (Auto) (5.5-15.2) % Eos % (Auto) (0.1-6.8) % Baso % (Auto) (0.3-3.8) % Neut # (Auto) (1.7-6.9) x10-3/uL Lymph # (Auto) (0.5-4.5) x10-3/uL Glenn # (Auto) (0.0-1.2) x10-3/uL Eos # (Auto) (0.0-0.6) x10-3/uL Baso # (Auto) (0.0-0.3) x10-3/uL Sodium (135-145) mmol/L Potassium (3.5-5.3) mmol/L Chloride (100-110) mmol/L Carbon Dioxide (21-32) mmol/L BUN (7-18) mg/dL Creatinine (0.70-1.30) mg/dL Est Cr Clr Drug Dosing mL/min Estimated GFR (MDRD) (>60) BUN/Creatinine Ratio (9-20) Glucose (80-116) mg/dL Calcium (8.6-10.2) mg/dL Total Bilirubin (0.1-1.3) mg/dL AST (5-25) IU/L ALT (12-36) U/L Alkaline Phosphatase (56-112) IU/L Troponin I (4.0-60.3) pg/mL Total Protein (6.0-8.0) g/dL Albumin (3.2-4.6) g/dL Globulin g/dL Albumin/Globulin Ratio Urine Color Yellow (YELLOW) Urine Appearance Clear (CLEAR) Urine pH 6.0 (5.0-6.5) Ur Specific [place] 1.005 L (1.010-1.025) Urine Protein Negative (NEGATIVE) mg/dL Urine Glucose (UA) Normal (NORMAL) mg/dL Urine Ketones Negative (NEGATIVE) mg/dL Urine Occult Blood Negative (NEGATIVE) Urine Nitrite Negative (NEGATIVE) Urine Bilirubin Negative (NEGATIVE) Urine Urobilinogen Normal (NEGATIVE) mg/dL Ur Leukocyte Esterase Negative (NEGATIVE) Urine RBC 0-5 (0-5) Urine WBC 0-5 (0-5) Ur Squamous Epith Cells Occasional (NS,R,O) Urine Bacteria Rare H (NS) Ethyl Alcohol (<0.03) % Meds: Medications Generic Name Dose Route Start Last Admin Trade Name Freq PRN Reason Stop Dose Admin Sodium Chloride 1,000 mls @ 500 mls/hr 09/23/20 13:45 09/23/20 14:00 Normal Saline IV 500 mls/hr ASDIRECTED TORO Administration Sodium Chloride 10 ml 09/23/20 13:36 09/23/20 13:55 Sodium Chloride 0.9% 10 Ml Syringe FLUSH 10 ml ASDIRECTED PRN Administration Keep Vein Open Discontinued Medications Generic Name Dose Route Start Last Admin Trade Name Freq PRN Reason Stop Dose Admin Cephalexin 500 mg 09/23/20 13:38 09/23/20 13:41 Cephalexin 500 Mg Cap PO 09/23/20 13:39 500 mg NOW STA Administration Departure - Departure Time of Disposition: 16:30 Disposition: Home, Self-Care 01 Condition: Good Clinical Impression: Cellulitis, Alcoholism, Homeless Alcohol intoxication Qualifiers: Complication of substance-induced condition: uncomplicated Qualified Code(s): F10.920 - Alcohol use, unspecified with intoxication, uncomplicated - Discharge Information Instructions: Cellulitis, Adult, [id number], Preseptal Cellulitis, Adult, Alcohol Intoxication, [id number] Referrals: PCP,None [Primary Care Provider] - Additional Instructions: Please read discharge instructions on cellulitis(soft tissue and skin infection) Do not cover your wound when you're inside a house Keflex 500 mg 3 times daily for 10 days Take ibuprofen 800 mg with tylenol 1000 mg every 8 hours as needed for pain Follow up as eeded Sepsis Event Note (ED) - Evaluation Sepsis Screening Result: No Definite Risk - Focused Exam Vital Signs: Vital Signs Temp Pulse Resp BP Pulse Ox 09/23/20 13:05 37.3 C 79 18 209/118 H 100 - My Orders Last 24 Hours: My Active Orders 09/23/20 13:36 EKG Documentation Completion [RC] ASDIRECTED Sodium Chloride 0.9% [Saline Flush] 10 ml FLUSH ASDIRECTED PRN Saline Lock Insert [OM.PC] Routine EKG 12 Lead [EK] Routine 09/23/20 13:45 Sodium Chloride 0.9% [Normal Saline] 1,000 ml IV ASDIRECTED - Assessment/Plan Last 24 Hours: My Active Orders 09/23/20 13:36 EKG Documentation Completion [RC] ASDIRECTED Sodium Chloride 0.9% [Saline Flush] 10 ml FLUSH ASDIRECTED PRN Saline Lock Insert [OM.PC] Routine EKG 12 Lead [EK] Routine 09/23/20 13:45 Sodium Chloride 0.9% [Normal Saline] 1,000 ml IV ASDIRECTED
[2020-09-23 17:11] VITALS: BP 136/78; PULSE 85
== END 2020-09-23 16:55 | disposition home or self-care (01) ==
LOC: FB.ED 13:04
DX: L03.113 Cellulitis of right upper limb (principal); F10.220 Alcohol dependence with intoxication, uncomplicated; I25.10 Atherosclerotic heart disease of native coronary artery without angina pectoris; I10 Essential (primary) hypertension; Y90.0 Blood alcohol level of less than 20 mg/100 ml; Z59.0 Homelessness; Z72.0 Tobacco use; Z79.899 Other long term (current) drug therapy
CPT/HCPCS: 36415; 71045; 80053; 80307; 81001; 84484; 85025; 93005; 99284; A9270; J7030